=== PATIENT | female | born 1940 | race Caucasian/White ===

== ENCOUNTER 2019-11-21 12:01 | Outpatient (CLI) | payer MEDICARE ==
--- NOTE | 2019-11-21 13:05 | CT ---
EXAM: CT chest without contrast per low-dose cancer screening protocol HISTORY: History of smoking and nicotine dependence COMPARISON: None TECHNIQUE: Multiple contiguous axial images were obtained in a CT of the chest without contrast per l ow-dose cancer screening protocol. Sagittal and coronal reformats were performed. FINDINGS: Pulmonary nodules: Emphysematous changes are seen in the lungs. A calcified granuloma is seen in the superior aspect of the left lower lobe. No suspicious pulmonary nodules are seen. No focal infiltrates are seen. Pleural space: No pneumothorax or pleural effusion are seen. Heart: The heart is normal in size. Mediastinum: No hilar or mediastinal lymphadenopathy appreciated on this limited noncontrast examinat ion. Atherosclerotic calcifications in the aorta. Bones: Degenerative changes in the spine.. Visualized subdiaphragmatic structures: Unremarkable. IMPRESSION: Lung RADS category 1-negative.
== END 2019-11-21 12:02 | disposition home or self-care (01) ==
LOC: CT 12:01
PROVIDERS: ATTEND Internal Medicine
DX: Z12.2 Encounter for screening for malignant neoplasm of respiratory organs (principal); F17.210 Nicotine dependence, cigarettes, uncomplicated
CPT/HCPCS: G0297

== ENCOUNTER 2021-01-19 11:38 | Outpatient (CLI) | payer MEDICARE | END 2021-01-19 11:39 | disposition home or self-care (01) | LOC: BICCT 11:38 | PROVIDERS: ATTEND Internal Medicine Hematology & Oncology | DX: Z12.2 Encounter for screening for malignant neoplasm of respiratory organs (principal); F17.210 Nicotine dependence, cigarettes, uncomplicated | CPT/HCPCS: 71271 ==

== ENCOUNTER 2023-03-17 12:29 | Outpatient (CLI) | payer MEDICARE | END 2023-03-17 12:30 | disposition home or self-care (01) | LOC: BICMAMMO 12:29 | PROVIDERS: ATTEND Physician Assistant Medical | DX: Z13.820 Encounter for screening for osteoporosis (principal); K83.8 Other specified diseases of biliary tract; K76.0 Fatty (change of) liver, not elsewhere classified; R19.4 Change in bowel habit; M85.89 Other specified disorders of bone density and structure, multiple sites | CPT/HCPCS: 77080 ==

== ENCOUNTER 2023-08-17 20:49 | Inpatient (IN) | payer MEDICARE ==
[2023-08-17] MEDS ORDERED: fentaNYL 50 mcg/mL 1 mL Vial ONE (21:15)
[2023-08-17] MEDS ORDERED: Ondansetron PF 4 MG/2 ML Vial ONE (21:15)
[2023-08-17 21:16] LABS: #Eosinphils 0.1 thou/uL (0.0-0.7); #Monocytes 0.7 thou/uL (0.11-0.59); #Neutrophils 5.3 thou/uL (1.40-6.50); %Basophils 0.4 % (0.0-1.0); %Eosinophils 1.7 % (0.0-10.0); %Lymphocytes 17.5 % (21.0-51.0); %Monocytes 8.9 % (0.0-10.0); %Neutrophils 71.2 % (42.0-75.0); Hematocrit 40.7 % (36.0-47.0); Hemoglobin 13.6 g/dL (12.0-16.0); Mean Corpuscular HGB CONC 33.4 g/dL (32.0-36.0); Mean Corpuscular Hemoglobin 32.8 pg (27.0-31.0); Mean Corpuscular Volume 98.1 fl (78.0-98.0); Mean Platelet Volume 9.8 fL (7.4-10.4); Platelet Count 178 10x3/uL (130-400); RBC Distribution Width 13.5 % (11.5-14.5); Red Blood Cell (RBC) Count 4.15 mill/uL (4.20-5.40); White Blood Cell (WBC) Count 7.4 10x3/uL (4.8-10.8)
[2023-08-17 21:37] LABS: ALT (SGPT) 104 U/L (8-55); AST (SGOT) 187 U/L (5-34); Albumin 4.2 g/dL (3.4-4.8); Alkaline Phosphatase 532 U/L (40-110); Anion Gap 8 mmol/L (10-20); BUN (Urea Nitrogen) 16 mg/dL (9.8-20.1); Bilirubin, Total 1.7 mg/dL (0.2-1.2); Calc. Creatinine Clearance 0 mL/min (70-130); Calcium 10.4 mg/dL (7.8-10.44); Carbon Dioxide 33 mmol/L (23-31); Chloride 97 mmol/L (98-107); Estimated GFR 73; Globulin 3.2 g/dL (2.4-3.5); Glucose 172 mg/dL (83-110); Lipase 47 U/L (8-78); Potassium 3.6 mmol/L (3.5-5.1); Protein, Total 7.4 g/dL (5.8-8.1); Sodium 134 mmol/L (136-145)
[2023-08-17 21:41] LABS: Troponin I 0.013 ng/mL (< 0.028)
[2023-08-17 22:50] LABS: Bacteria/HPF 2+ HPF (None Seen); Bilirubin Negative (Negative); Blood, Urine Negative (Negative); CAUTI Indications for Culture Pelvic or flank pain; Clarity Turbid (Clear); Glucose, Urine (Dipstick) Normal (Negative); Ketone, Urine Trace mg/dL (Negative); Leukocyte 75 Leu/uL (Negative); Nitrite Negative (Negative); Protein, Urine (Dipstick) 10 mg/dL (Neg-Trace); RBC/HPF 0-3 HPF (0-3); Specific Gravity, Urine 1.012 (1.002-1.036); Squamous Epithelial 0-3 HPF (0-3)
[2023-08-17 22:53] LABS: Urine Culture Reflex No No
[2023-08-17] MEDS ORDERED: Piperacillin/Tazobactam 4.5 GM VIAL ONE (23:13)
[2023-08-17] MEDS ORDERED: Sodium Chloride 0.9% 100 ML ONE (23:13)
[2023-08-18 00:53] LABS: Troponin I Less than 0.010 ng/mL (< 0.028)
[2023-08-18] MEDS ORDERED: Ondansetron ODT 4 MG TAB PO PRN (02:07)
[2023-08-18] MEDS ORDERED: Ondansetron PF 4 MG/2 ML Vial IVP PRN (02:07)
[2023-08-18] MEDS ORDERED: Acetaminophen 650 MG Suppository PR PRN (02:07)
[2023-08-18] MEDS ORDERED: Acetaminophen 325 MG TAB PO PRN (02:07)
[2023-08-18] MEDS ORDERED: Piperacillin/Tazobactam 3.375 GM in Sodium Chloride 0.9% 100 ML IVPB SCH ×2 (03:00→12:00)
[2023-08-18] MEDS: Sodium Chloride 0.9% 1,000 ML IV SCH ×2 (03:29→17:04)
[2023-08-18 04:24] VITALS: BMI 23.4
[2023-08-18 05:25] LABS: #Eosinphils 0.1 thou/uL (0.0-0.7); #Monocytes 0.6 thou/uL (0.11-0.59); #Neutrophils 3.3 thou/uL (1.40-6.50); %Basophils 0.6 % (0.0-1.0); %Eosinophils 1.7 % (0.0-10.0); %Lymphocytes 25.3 % (21.0-51.0); %Monocytes 10.5 % (0.0-10.0); %Neutrophils 61.5 % (42.0-75.0); Hematocrit 36.3 % (36.0-47.0); Hemoglobin 12.2 g/dL (12.0-16.0); Mean Corpuscular HGB CONC 33.6 g/dL (32.0-36.0); Mean Corpuscular Hemoglobin 33.4 pg (27.0-31.0); Mean Corpuscular Volume 99.5 fl (78.0-98.0); Mean Platelet Volume 10.4 fL (7.4-10.4); Platelet Count 163 10x3/uL (130-400); RBC Distribution Width 13.6 % (11.5-14.5); Red Blood Cell (RBC) Count 3.65 mill/uL (4.20-5.40); White Blood Cell (WBC) Count 5.3 10x3/uL (4.8-10.8)
[2023-08-18 05:55] LABS: Anion Gap 11 mmol/L (10-20); BUN (Urea Nitrogen) 13 mg/dL (9.8-20.1); Calc. Creatinine Clearance 71 mL/min (70-130); Calcium 9.2 mg/dL (7.8-10.44); Carbon Dioxide 27 mmol/L (23-31); Chloride 101 mmol/L (98-107); Estimated GFR 87; Glucose 105 mg/dL (83-110); Potassium 3.6 mmol/L (3.5-5.1); Sodium 135 mmol/L (136-145)
[2023-08-18 06:00] LABS: Troponin I Less than 0.010 ng/mL (< 0.028)
[2023-08-18] MEDS ORDERED: Indomethacin 50 MG SUPP PR SCH (11:00)
[2023-08-18] MEDS ORDERED: PROPOFOL 20 ML ONE ×2 (12:40→14:05)
[2023-08-18] MEDS ORDERED: Rocuronium Bromide 10 MG/ML (10ML VIAL) ONE ×3 (12:41→14:29)
[2023-08-18] MEDS ORDERED: Indomethacin 50 MG SUPP ONE (13:39)
[2023-08-18] MEDS ORDERED: Piperacillin/Tazobactam 3.375 GM VIAL ONE (13:49)
[2023-08-18] MEDS ORDERED: Sodium Chloride 0.9% 100 ML ONE (13:51)
[2023-08-18] MEDS ORDERED: Lidocaine 1% PF 5 ML VIAL ONE ×2 (14:06→14:29)
[2023-08-18] MEDS ORDERED: Dexamethasone 20 MG/5 ML VIAL ONE (14:29)
[2023-08-18] MEDS ORDERED: Ondansetron PF 4 MG/2 ML Vial ONE ×2 (14:29→14:42)
[2023-08-18] MEDS ORDERED: PHENYLEPHRINE-NS 100 MCG/ML 10 ML SYRINGE ONE (14:29)
[2023-08-18] MEDS ORDERED: PROPOFOL 200 MG/20 ML VIAL ONE (14:29)
[2023-08-18] MEDS ORDERED: Dexamethasone 4 mg/ml Vial ONE (14:42)
[2023-08-18] MEDS ORDERED: fentaNYL 50 mcg/mL 1 mL Vial ONE (14:45)
[2023-08-18] MEDS ORDERED: Glucagon 1 MG/ML KIT ONE (14:47)
[2023-08-19] MEDS: Sodium Chloride 0.9% 1,000 ML IV SCH (00:24)
[2023-08-19] MEDS ORDERED: Piperacillin/Tazobactam 3.375 GM in Sodium Chloride 0.9% 100 ML IVPB SCH (01:00)
[2023-08-19 04:16] LABS: #Eosinphils 0.1 thou/uL (0.0-0.7); #Monocytes 0.4 thou/uL (0.11-0.59); #Neutrophils 2.7 thou/uL (1.40-6.50); %Basophils 0.4 % (0.0-1.0); %Eosinophils 1.1 % (0.0-10.0); %Lymphocytes 29.4 % (21.0-51.0); %Monocytes 8.8 % (0.0-10.0); %Neutrophils 60.1 % (42.0-75.0); Hematocrit 34.3 % (36.0-47.0); Hemoglobin 11.4 g/dL (12.0-16.0); Mean Corpuscular HGB CONC 33.2 g/dL (32.0-36.0); Mean Corpuscular Hemoglobin 33.2 pg (27.0-31.0); Mean Platelet Volume 10.3 fL (7.4-10.4); Platelet Count 138 10x3/uL (130-400); RBC Distribution Width 13.5 % (11.5-14.5); Red Blood Cell (RBC) Count 3.43 mill/uL (4.20-5.40); White Blood Cell (WBC) Count 4.5 10x3/uL (4.8-10.8)
[2023-08-19 04:39] LABS: ALT (SGPT) 144 U/L (8-55); AST (SGOT) 106 U/L (5-34); Albumin 3.4 g/dL (3.4-4.8); Alkaline Phosphatase 401 U/L (40-110); Anion Gap 10 mmol/L (10-20); BUN (Urea Nitrogen) 13 mg/dL (9.8-20.1); Bilirubin, Total 1.6 mg/dL (0.2-1.2); Calc. Creatinine Clearance 67 mL/min (70-130); Calcium 8.8 mg/dL (7.8-10.44); Carbon Dioxide 26 mmol/L (23-31); Chloride 103 mmol/L (98-107); Estimated GFR 82; Globulin 2.4 g/dL (2.4-3.5); Glucose 122 mg/dL (83-110); Potassium 3.9 mmol/L (3.5-5.1); Protein, Total 5.8 g/dL (5.8-8.1); Sodium 135 mmol/L (136-145)
[2023-08-19 04:42] LABS: ALT (SGPT) 143 U/L (8-55); AST (SGOT) 105 U/L (5-34); Albumin 3.3 g/dL (3.4-4.8); Alkaline Phosphatase 402 U/L (40-110); Bilirubin, Direct 0.8 mg/dL (0.1-0.3); Bilirubin, Total 1.6 mg/dL (0.2-1.2); Protein, Total 5.7 g/dL (5.8-8.1)
[2023-08-19] MEDS ORDERED: Bupivacaine PF 0.5% 30 ML VIAL ONE (07:00)
[2023-08-19] MEDS ORDERED: EPINEPHrine 1 MG/ML VIAL ONE (07:00)
[2023-08-19] MEDS ORDERED: fentaNYL PF 100 MCG/2 ML SYRINGE ONE (07:21)
[2023-08-19] MEDS ORDERED: Rocuronium Bromide 10 MG/ML (10ML VIAL) ONE ×2 (07:22→07:46)
[2023-08-19] MEDS ORDERED: Dexamethasone 4 mg/ml Vial ONE (07:22)
[2023-08-19] MEDS ORDERED: Lidocaine 1% PF 5 ML VIAL ONE ×2 (07:22→07:46)
[2023-08-19] MEDS ORDERED: Ondansetron PF 4 MG/2 ML Vial ONE ×2 (07:22→07:46)
[2023-08-19] MEDS ORDERED: PROPOFOL 20 ML ONE (07:22)
[2023-08-19] MEDS ORDERED: traMADol HCl 50 MG TAB PO PRN (07:40)
[2023-08-19] MEDS ORDERED: Ibuprofen 600 MG TAB PO PRN (07:40)
[2023-08-19] MEDS ORDERED: Acetaminophen 500 MG TAB PO SCH (07:45)
[2023-08-19] MEDS ORDERED: Ketorolac Tromethamine 30 MG/ML VIAL ONE ×2 (07:46→07:57)
[2023-08-19] MEDS ORDERED: ePHEDrine Sulfate 50 MG/10 ML VIAL ONE ×2 (07:46→07:53)
[2023-08-19] MEDS ORDERED: PROPOFOL 200 MG/20 ML VIAL ONE (07:46)
[2023-08-19] MEDS ORDERED: Dexamethasone 20 MG/5 ML VIAL ONE (07:46)
[2023-08-19] MEDS ORDERED: SUGAMMADEX SODIUM 200 MG/2 ML VIAL ONE (08:11)
[2023-08-19] MEDS ORDERED: Ondansetron HCl/PF 4 MG/2 ML Vial IVP PRN (08:31)
[2023-08-19] MEDS ORDERED: Promethazine HCl 25 MG/ML VIAL IM PRN (08:31)
[2023-08-19] MEDS ORDERED: Aspirin 81 mg Enteric Coated Tablet PO SCH (09:00)
[2023-08-19] MEDS ORDERED: Pantoprazole 40 MG VIAL IVP SCH (09:00)
[2023-08-19 09:29] VITALS: BP 147/74; TEMP 96.8
[2023-08-19] MEDS ORDERED: Acetaminophen 500 MG TAB PO PRN (14:00)
== END 2023-08-19 11:38 | disposition home or self-care (01) | DRG 418 ==
LOC: ERS 20:49 → ERHOLD 23:47 → SURG A 23:50
PROVIDERS: ADMIT Student in an Organized Health Care Education/Training Program; ATTEND Student in an Organized Health Care Education/Training Program
PROC: 0FC98ZZ Extirpation of Matter from Common Bile Duct, Via Natural or Artificial Opening Endoscopic (ICD-10-PCS; 2023-08-18)
PROC: BF141ZZ Fluoroscopy of Gallbladder, Bile Ducts and Pancreatic Ducts using Low Osmolar Contrast (ICD-10-PCS; 2023-08-18)
PROC: 0F798ZZ Dilation of Common Bile Duct, Via Natural or Artificial Opening Endoscopic (ICD-10-PCS; 2023-08-18)
PROC: 0FT44ZZ Resection of Gallbladder, Percutaneous Endoscopic Approach (ICD-10-PCS; principal; 2023-08-19)
PROC: 3E033XZ Introduction of Vasopressor into Peripheral Vein, Percutaneous Approach (ICD-10-PCS; 2023-08-19)
DX: K80.63 Calculus of gallbladder and bile duct with acute cholecystitis with obstruction (principal); E87.1 Hypo-osmolality and hyponatremia; R79.89 Other specified abnormal findings of blood chemistry; F17.210 Nicotine dependence, cigarettes, uncomplicated; K75.9 Inflammatory liver disease, unspecified; K82.8 Other specified diseases of gallbladder; R60.0 Localized edema; Z71.6 Tobacco abuse counseling
CPT/HCPCS: 36415; 74181; 74330; 76705; 80048; 80053; 81001; 83690; 84484; 85025; 88304; 93005; 96361; 96365; 96375; C1889; J0171; J1100; J1611; J1885; J2405; J2543; J2704; J3010; J3490; J7050; S0020